=== PATIENT | female | born 1980 | race Caucasian/White ===

== ENCOUNTER 2022-05-26 17:05 | Inpatient (IN) | payer MEDICAID ==
[~2022-05-26] VITALS: Ht 175.3 cm; Wt 68.0 kg
[2022-05-26] MEDS ORDERED: CEFTRIAXONE 1 G in IV DEXTROSE 5% 50 ML IV ONE (19:00)
[2022-05-26] MEDS ORDERED: THIAMINE HCL 200 MG/2 ML VIAL IV ONE (19:00)
[2022-05-26] MEDS ORDERED: FOLIC ACID 5 MG/ML VIAL IV ONE ×2 (19:00→20:36)
[2022-05-26] MEDS ORDERED: OCTREOTIDE ACETATE 50 MCG/1 ML ML IV ONE (19:00)
[2022-05-26] MEDS ORDERED: IV NORMAL SALINE 1000 ML BAG IV ONE (19:00)
[2022-05-26] MEDS ORDERED: PANTOPRAZOLE SODIUM IV 80 MG in IV DEXTROSE 5% 100 ML IV ONE ×2 (19:00→21:00)
[2022-05-26] MEDS ORDERED: PANTOPRAZOLE SODIUM 40 MG VIAL IV ONE ×2 (19:00→20:45)
[2022-05-26] MEDS ORDERED: MORPHINE SULFATE 4 MG/1 ML DISP.SYRIN IV ONE ×2 (19:00→22:30)
[2022-05-26] MEDS ORDERED: OCTREOTIDE ACETATE INJ 500 MCG in IV DEXTROSE 5% 100 ML IV ONE (19:00)
[2022-05-26] MEDS ORDERED: ONDANSETRON 4 MG/2 ML VIAL IV ONE ×2 (19:00→22:30)
[2022-05-26 19:38] LABS: ALANINE AMINOTRANSFERASE 26 U/L (14-59); ALKALINE PHOSPHATASE 219 U/L (50-136); ASPARTATE AMINOTRANSFERASE 140 U/L (15-37); BILIRUBIN,DIRECT 2.4 mg/dL (0.0-0.2); BILIRUBIN,TOTAL 2.9 mg/dL (0.2-1.0); CARBON DIOXIDE 25 mmol/L (21-32); CHLORIDE 104 mmol/L (98-107); CREATININE 0.6 mg/dL (0.6-1.3); GLUCOSE 91 mg/dL (74-106); LIPASE 165 U/L (73-393); POTASSIUM 3.3 mmol/L (3.5-5.1); TOTAL PROTEIN, SERUM 6.2 g/dL (6.4-8.2); UREA NITROGEN, BLOOD 4 mg/dL (7-18)
--- NOTE | 2022-05-26 20:17 | NUR ---
pt was moved from room 5b to room 4b. pt a/o
--- NOTE | 2022-05-26 20:29 | NUR ---
pt is a very diffiuclt blood draw and iv start. lab is unable to do type and cross. Informed Dr. Cabrera and called rooming house inspector for a midline. pt has multiple meds to be given iv.
[2022-05-26] MEDS: POTASSIUM CHLORIDE 50 ML IV SCH ×2 (20:30→21:30)
[2022-05-26] MEDS: MAGNESIUM SULFATE/D5W 100 ML IV SCH ×2 (20:30→21:30)
[2022-05-26] MEDS ORDERED: MORPHINE SULFATE 4 MG/1 ML DISP.SYRIN ONE ×2 (20:36→22:31)
[2022-05-26 20:48] LABS: *URINE HCG, QUAL NEGATIVE (NEGATIVE)
[2022-05-26 20:49] LABS: *BILIRUBIN,URIN NEGATIVE (NEGATIVE); *BLOOD, URINE NEGATIVE (NEGATIVE); *CLARITY,URINE CLEAR (CLEAR); *COLOR,URINE YELLOW (YELLOW); *KETONES,URINE NEGATIVE (NEGATIVE); *UROBILINOGEN,URINE 0.2 E.U./dl (NORMAL); LEUKOCYTE ESTERASE ,URINE NEGATIVE (NEGATIVE); NITRITE, URINE NEGATIVE (NEGATIVE); PH,URINE 6.5 (5.0-8.0); UGLUCOSE NEGATIVE (NEGATIVE)
[2022-05-26] MEDS ORDERED: ONDANSETRON 4 MG/2 ML VIAL ONE ×2 (20:50→22:31)
[2022-05-26] MEDS ORDERED: PANTOPRAZOLE SODIUM 40 MG VIAL ONE (20:50)
[2022-05-26] MEDS ORDERED: THIAMINE HCL 200 MG/2 ML VIAL ONE (20:51)
[2022-05-26] MEDS ORDERED: PANTOPRAZOLE SODIUM IV 80 MG in IV DEXTROSE 5% 500 ML IV ONE (21:00)
--- NOTE | 2022-05-26 21:32 | NUR ---
I was informed by the ice house supervisor that the nurse will not come in to a picc line on the pt. I informed this to the ER doctor Deborah.
--- NOTE | 2022-05-26 21:57 | NUR ---
Dr. Cabrera is placing iv 20 g via ultrasound guidance.
--- NOTE | 2022-05-26 22:42 | NUR ---
2 iv [address] Cabrera to ac Right and Left.
--- NOTE | 2022-05-26 22:42 | NUR ---
Ravi Finn is speaking with Dr. Cabrera for admission.
[2022-05-26 22:57] LABS: HEMATOCRIT 37.6 % (31.2-41.9); MEAN CORPUSCULAR HEMOGLOBIN 33.5 uug (24.7-32.8); MEAN CORPUSCULAR VOLUME 101.6 fL (75.5-95.3); PLATELET COUNT (AUTO) 272 K/uL (179-408)
[2022-05-26] MEDS ORDERED: CEFTRIAXONE /D5W 50ML IVPB **ER PYXIS IV ONE (23:16)
[2022-05-26] MEDS ORDERED: POTASSIUM CHLORIDE 100 ML ONE (23:16)
[2022-05-26] MEDS ORDERED: MAGNESIUM SULFATE/D5W 200 ML ONE (23:16)
[2022-05-26] MEDS ORDERED: REMEDY ESSENTIAL ZINC PASTE 113 GM TP PRN (23:30)
[2022-05-26] MEDS ORDERED: OCTREOTIDE ACETATE DRIP 500 MCG in IV NORMAL SALINE 99 ML IV PRN (23:30)
[2022-05-26] MEDS ORDERED: ONDANSETRON 4 MG/2 ML VIAL IV PRN (23:30)
[2022-05-26] MEDS ORDERED: ACETAMINOPHEN 325 MG TABLET PO PRN (23:30)
[2022-05-26] MEDS ORDERED: CHLORDIAZEPOXIDE HCL 25 MG CAPSULE PO ONE (23:30)
[2022-05-26] MEDS ORDERED: MAGNESIUM HYDROXIDE 30 ML LIQUID UDC PO PRN (23:30)
--- NOTE | 2022-05-27 | NUR ---
report given to Juancho RN pt will go to room 306.
[2022-05-27] MEDS ORDERED: CHLORDIAZEPOXIDE HCL 25 MG CAPSULE PO ONE (00:30)
[2022-05-27] MEDS ORDERED: CHLORDIAZEPOXIDE HCL 25 MG CAPSULE ONE (00:56)
--- NOTE | 2022-05-27 00:59 | NUR ---
pt is consented for a central line, pt agrees for femerol line by Dr. Cabrera.
--- NOTE | 2022-05-27 02:15 | NUR ---
pt was transported to room 306 via [facility] with all belongings. ASHLEY Dawkins in room to receive the pt.
[2022-05-27 03:22] VITALS: BP 108/72
[2022-05-27] MEDS: LORAZEPAM 2 MG/1 ML VIAL IV PRN ×2 (03:23→20:08)
[2022-05-27 04:41] VITALS: BP 106/67
[2022-05-27 07:42] LABS: HEMATOCRIT 32.9 % (31.2-41.9); MEAN CORPUSCULAR HEMOGLOBIN 34.2 uug (24.7-32.8); MEAN CORPUSCULAR VOLUME 101.2 fL (75.5-95.3); PLATELET COUNT (AUTO) 204 K/uL (179-408)
[2022-05-27 07:57] LABS: BILIRUBIN,DIRECT 1.9 mg/dL (0.0-0.2); BILIRUBIN,TOTAL 2.2 mg/dL (0.2-1.0); CREATININE 0.6 mg/dL (0.6-1.3); PHOSPHOROUS 3.3 mg/dL (2.5-4.9); POTASSIUM 3.1 mmol/L (3.5-5.1); TOTAL PROTEIN, SERUM 4.6 g/dL (6.4-8.2)
[2022-05-27 08:00] LABS: THYROID STIMULATING HORMONE 0.532 mIU/mL (0.358-3.740)
[2022-05-27] MEDS: PANTOPRAZOLE SODIUM 40 MG VIAL IV SCH ×2 (08:37→20:08)
[2022-05-27] MEDS: FOLIC ACID 1 MG TABLET PO SCH ×2 (08:53→09:28)
[2022-05-27] MEDS: THIAMINE HCL 100 MG TABLET PO SCH ×2 (08:53→09:28)
[2022-05-27] MEDS: CHLORDIAZEPOXIDE HCL 25 MG CAPSULE PO SCH ×4 (08:53→18:09)
--- NOTE | 2022-05-27 08:53 | NUR ---
Patient is sleeping. No signs of pain or distress were noted on the patient. Pt wasn't administered PO meds because patient is currently NPO
--- NOTE | 2022-05-27 09:26 | NUR ---
Per Ravi Greer it's OK to give PO meds now. But still leave patient NPO till further notice for possible procedure
[2022-05-27] MEDS: REMEDY ESSENTIAL ZINC PASTE 113 GM TP SCH ×2 (09:29→20:09)
[2022-05-27] MEDS ORDERED: HYDROCODONE/APAP 5-325MG TABLET PO PRN (10:00)
[2022-05-27] MEDS ORDERED: MAG HYDROX/AL HYDROX/SIMETH 30 ML LIQUID UDC PO PRN (10:00)
[2022-05-27] MEDS: POTASSIUM CHLORIDE 50 ML IV SCH ×4 (10:30→15:30)
[2022-05-27] MEDS ORDERED: OCTREOTIDE ACETATE DRIP 500 MCG in IV NORMAL SALINE 99 ML IV SCH ×2 (11:12→11:30)
[2022-05-27] MEDS: [UNRECOGNIZED DRUG - OTHER] IV SCH ×4 (11:49→21:41)
[2022-05-27 12:00] VITALS: BP 105/77
[2022-05-27] MEDS: MORPHINE SULFATE 2 MG/1 ML DISP.SYRIN IV PRN ×2 (14:32→18:48)
[2022-05-27 16:00] VITALS: BP 95/61
[2022-05-27] MEDS: CEFTRIAXONE 1 G in IV DEXTROSE 5% 50 ML IV SCH (20:08)
[2022-05-27 20:34] VITALS: BP 113/79
[2022-05-28] MEDS: MORPHINE SULFATE 2 MG/1 ML DISP.SYRIN IV PRN ×4 (00:16→19:52)
[2022-05-28] MEDS: LORAZEPAM 2 MG/1 ML VIAL IV PRN ×3 (04:50→21:16)
[2022-05-28 04:55] VITALS: BP 109/77
[2022-05-28 07:49] LABS: CREATININE 0.6 mg/dL (0.6-1.3); POTASSIUM 4.7 mmol/L (3.5-5.1)
[2022-05-28] MEDS: [UNRECOGNIZED DRUG - OTHER] IV SCH ×2 (09:06)
[2022-05-28] MEDS: PANTOPRAZOLE SODIUM 40 MG VIAL IV SCH ×2 (09:06→20:00)
[2022-05-28] MEDS: THIAMINE HCL 100 MG TABLET PO SCH (09:06)
[2022-05-28] MEDS: FOLIC ACID 1 MG TABLET PO SCH (09:06)
[2022-05-28] MEDS: CHLORDIAZEPOXIDE HCL 25 MG CAPSULE PO SCH ×3 (09:06→17:14)
[2022-05-28] MEDS: REMEDY ESSENTIAL ZINC PASTE 113 GM TP SCH ×2 (09:07→21:00)
[2022-05-28 12:00] VITALS: BP 102/84
[2022-05-28 16:03] VITALS: BP 120/84
[2022-05-28] MEDS: CEFTRIAXONE 1 G in IV DEXTROSE 5% 50 ML IV SCH (20:00)
[2022-05-28 20:09] VITALS: BP 111/76
[2022-05-28] MEDS ORDERED: diphenhydrAMINE 25 MG CAP PO PRN (20:45)
[2022-05-29] MEDS: MORPHINE SULFATE 2 MG/1 ML DISP.SYRIN IV PRN ×5 (00:37→22:04)
[2022-05-29] MEDS: LORAZEPAM 2 MG/1 ML VIAL IV PRN ×2 (03:19→13:55)
[2022-05-29 04:32] VITALS: BP 106/72
[2022-05-29 06:35] LABS: HEMATOCRIT 30.6 % (31.2-41.9); MEAN CORPUSCULAR HEMOGLOBIN 34.1 uug (24.7-32.8); MEAN CORPUSCULAR VOLUME 100.9 fL (75.5-95.3); PLATELET COUNT (AUTO) 171 K/uL (179-408)
[2022-05-29 07:02] LABS: BILIRUBIN,TOTAL 2.3 mg/dL (0.2-1.0); CREATININE 0.7 mg/dL (0.6-1.3); MAGNESIUM 1.5 mg/dL (1.8-2.4); PHOSPHOROUS 2.7 mg/dL (2.5-4.9); POTASSIUM 4.4 mmol/L (3.5-5.1); TOTAL PROTEIN, SERUM 4.6 g/dL (6.4-8.2)
--- NOTE | 2022-05-29 08:00 | NUR ---
PT WILL HAVE EDG PROCEDURE AT 1300. NOTIFIED PT. PLACED PT ON NPO EXCEPT MED PER MD.
--- NOTE | 2022-05-29 08:15 | NUR ---
PT ON BED AWAKE BUT LETHARGIC. PT COMPLAIN OF ABDOMINAL PAIN WILL GIVE PRN MORPHINE PER MD. NO SOB NOTED.
[2022-05-29] MEDS: CHLORDIAZEPOXIDE HCL 25 MG CAPSULE PO SCH ×3 (09:02→17:00)
[2022-05-29] MEDS: PANTOPRAZOLE SODIUM 40 MG VIAL IV SCH ×2 (09:02→22:03)
[2022-05-29] MEDS: REMEDY ESSENTIAL ZINC PASTE 113 GM TP SCH ×2 (09:02→21:00)
[2022-05-29] MEDS: THIAMINE HCL 100 MG TABLET PO SCH (09:02)
[2022-05-29] MEDS: FOLIC ACID 1 MG TABLET PO SCH (09:02)
[2022-05-29] MEDS: MAGNESIUM SULFATE/D5W 100 ML IV SCH ×2 (09:44→11:04)
--- NOTE | 2022-05-29 09:57 | NUR ---
SW attempted to do an assessment with the patient and the patient asked this SW to come back at a different time. SW will follow up with the patient today.
[2022-05-29 12:01] VITALS: BP 109/70
--- NOTE | 2022-05-29 13:10 | NUR ---
EGD WAS MOVED TO 1900 PER SURGERY. NOTIFIED PT.
--- NOTE | 2022-05-29 13:22 | NUR ---
Social Work consult was requested for a patient on [facility] for substance abuse resources. Patient is a 42-year-old female admitted to the hospital for a GI bleed. Patient presents with anxious mood and congruent affect. Patient appears lethargic with low energy. Patient is alert and oriented X4. Patient states her primary floral designer salesperson is her daughter, Bibiana Mckinney ([phone]) and she lives in [place], [place]. Patient states she currently lives in a condo with a roommate at [address] [place] [address]. Patient states she is currently unemployed, she is driving, and does not have any medical equipment at home. Patient states she has a history of alcohol abuse. Patient states the last time she drank alcohol was right before she was admitted to the hospital. There is no toxicology report. [facility] provided the patient resources for substance abuse from [place] [id number] ([phone]), [facility] [address] [facility] [address] ([phone]), and [address] [address] ([phone]). Patient was appreciative of the resources and appears motivated for change, stating that she is open to receiving treatment. SW placed the resources in the patients chart.Patient denies a history of a psychiatric diagnosis. Patient states her plan for discharge is for her daughter, Bibiana ([phone]) to pick her up and take her home to [address] [place] [address].
[2022-05-29 16:28] VITALS: BP 122/81
--- NOTE | 2022-05-29 18:20 | NUR ---
PT WAS PICKED UP BY SURGERY TEAM. ALL JEWELRY WAS LEFT IN THE ROOM. PT ALERT AND COOPERATIVE.
[2022-05-29] MEDS ORDERED: MIDAZOLAM HCL 2 MG/2 ML VIAL ONE (18:36)
[2022-05-29] MEDS ORDERED: FENTANYL CITRATE 100 MCG/2 ML AMPUL ONE (18:36)
[2022-05-29] MEDS ORDERED: SUCCINYLCHOLINE CHLORIDE 200 MG/10 ML VIAL ONE (18:37)
[2022-05-29] MEDS ORDERED: PROPOFOL 200 MG/20 ML BOTTLE IV ONE (19:55)
[2022-05-29] MEDS ORDERED: ONDANSETRON 4 MG/2 ML VIAL IV ONE (19:55)
[2022-05-29] MEDS ORDERED: METOCLOPRAMIDE HCL 10 MG/2 ML VIAL IV ONE (19:55)
[2022-05-29] MEDS ORDERED: LIDOCAINE-MPF 2% 5 ML VIAL IJ ONE (19:55)
[2022-05-29] MEDS ORDERED: SEVOFLURANE 250 ML BOTTLE IH ONE (19:55)
[2022-05-29 21:47] VITALS: BP 108/73
[2022-05-29] MEDS: CEFTRIAXONE 1 G in IV DEXTROSE 5% 50 ML IV SCH (22:03)
[2022-05-30] MEDS: MORPHINE SULFATE 2 MG/1 ML DISP.SYRIN IV PRN ×2 (04:04→08:34)
[2022-05-30 04:12] VITALS: BP 115/70
[2022-05-30] MEDS: LORAZEPAM 2 MG/1 ML VIAL IV PRN ×2 (04:15→17:40)
--- NOTE | 2022-05-30 05:42 | NUR ---
SHIFT NOTE: PT CAME BACK FROM EGD PT IS JIM TURCIOS WROTE ORDERS TO CONTINUE TO ON SAME MEDICATION AND CAN HAVE REG DIET PT WAS GIVEN MORPHINE 2 MG AND ATIVAN 1MG LAST GIVEN AT 0404 NO SIGNS OF DISTRESS NOTED WILL ENDORSE TO AM NURSE PATIENT WAS GIVEN SANDWICH 2 CONTAINERS OF APPLE JUICE. PT MONITORED FOR FALL AND SAFETY MAINTAINED. WILL CONTINUE TO MONITOR FOR SAFETY.
[2022-05-30 06:34] LABS: CREATININE 0.7 mg/dL (0.6-1.3); MAGNESIUM 1.7 mg/dL (1.8-2.4); POTASSIUM 4.2 mmol/L (3.5-5.1)
--- NOTE | 2022-05-30 08:00 | NUR ---
sleeping on rounds but easily arousable when name was called, no distress noted, central line on right femoral area-no swelling/redness noted on site, call light within reach
[2022-05-30] MEDS: FUROSEMIDE 40 MG TABLET PO SCH (08:33)
[2022-05-30] MEDS: FOLIC ACID 1 MG TABLET PO SCH (08:33)
[2022-05-30] MEDS: CHLORDIAZEPOXIDE HCL 25 MG CAPSULE PO SCH ×3 (08:33→17:39)
[2022-05-30] MEDS: THIAMINE HCL 100 MG TABLET PO SCH (08:33)
[2022-05-30] MEDS: PANTOPRAZOLE SODIUM 40 MG VIAL IV SCH ×2 (08:33→20:37)
[2022-05-30] MEDS: REMEDY ESSENTIAL ZINC PASTE 113 GM TP SCH (08:36)
[2022-05-30] MEDS ORDERED: SPIRONOLACTONE 50 MG TABLET PO SCH (09:00)
[2022-05-30] MEDS ORDERED: SPIRONOLACTONE 100 MG TABLET PO SCH (09:00)
[2022-05-30] MEDS ORDERED: MAGNESIUM OXIDE 400 MG TABLET PO ONE (10:00)
--- NOTE | 2022-05-30 11:11 | NUR ---
WOUND CARE CONSULT: PT PRESENTS WITH RASH TO LEFT BUTTOCK AND LEFT THIGH AND MOSTLY LEFT SIDE OF BACK, UNKNOWN ETIOLOGY. DEFER TO PMD FOR RASH/SKIN CONDITION. PT IS INDEPENDENT WITH BED MOBILITY AND IS CONTINENT.
[2022-05-30 11:49] VITALS: BP 103/67
--- NOTE | 2022-05-30 13:30 | NUR ---
Patient is alert and oriented X4 able to go to the restroom on her own. Call light easily accessible; continue monitoring -KG (NS)
[2022-05-30] MEDS: HYDROMORPHONE 1 MG/1 ML DISP.SYRIN IV PRN ×2 (14:27→20:37)
--- NOTE | 2022-05-30 14:30 | NUR ---
us guided paracentesis done in the room- obtained 700ml fluids- sent to lab- tolerated procedure well
[2022-05-30 16:33] VITALS: BP 107/71
--- NOTE | 2022-05-30 18:34 | NUR ---
no distress noted, up and about to BR, voiding qs, ativan given x 1 this shift and medicated x 2- no reactions noted, all needs attended and met, call light within each
[2022-05-30 20:00] VITALS: BP 115/83
[2022-05-30] MEDS: CEFTRIAXONE 1 G in IV DEXTROSE 5% 50 ML IV SCH (20:37)
--- NOTE | 2022-05-31 00:10 | NUR ---
PT WAS GIVEN MEDICATION ATIVAN 1MG IV AND MEDICATION WAS SCAN BUT DIDN'T SHOW UP ON COMPUTER MEDICATION WAS GIVEN. MY EYEWITNESS WAS BLAS FLOR RN.
[2022-05-31] MEDS: HYDROMORPHONE 1 MG/1 ML DISP.SYRIN IV PRN ×3 (03:46→16:51)
[2022-05-31 04:00] VITALS: BP 102/66
[2022-05-31 06:48] LABS: HEMATOCRIT 33.6 % (31.2-41.9); MEAN CORPUSCULAR HEMOGLOBIN 33.4 uug (24.7-32.8); MEAN CORPUSCULAR VOLUME 100.5 fL (75.5-95.3); PLATELET COUNT (AUTO) 137 K/uL (179-408)
[2022-05-31 07:00] LABS: BILIRUBIN,TOTAL 2.5 mg/dL (0.2-1.0); CREATININE 0.8 mg/dL (0.6-1.3); MAGNESIUM 1.7 mg/dL (1.8-2.4); PHOSPHOROUS 4.3 mg/dL (2.5-4.9); POTASSIUM 4.2 mmol/L (3.5-5.1); TOTAL PROTEIN, SERUM 4.8 g/dL (6.4-8.2)
[2022-05-31] MEDS ORDERED: PROTEIN SUPPLEMENT (PROSTAT) 30 ML LIQUID PO SCH (08:00)
--- NOTE | 2022-05-31 08:42 | NUR ---
SHIFT NOTES ; PT IS ALERT AND ORIENTED X4 PT WAS GIVEN DILAUDID 0.5MG TWICE DURING THE SHIFT AND ATIVAN ONE MG DURING SHIFT NO ADVERSE REACTION NOTED FROM MEDICATION. PT CENTRAL LINE DRESSING WAS CHANGED. WILL CONTINUE TO MONITOR FOR SAFETY. PT BED LINEN WAS CHANGED AND PT WAS GIVEN TOWELS AND NEW GOWN WILL CONTINUE TO MONITOR FOR SAFETY.
[2022-05-31] MEDS ORDERED: SPIRONOLACTONE 50 MG TABLET PO SCH (09:00)
[2022-05-31] MEDS: LORAZEPAM 2 MG/1 ML VIAL IV PRN ×2 (09:23→14:54)
[2022-05-31] MEDS: PANTOPRAZOLE SODIUM 40 MG VIAL IV SCH (09:50)
[2022-05-31] MEDS: THIAMINE HCL 100 MG TABLET PO SCH (09:51)
[2022-05-31] MEDS: FUROSEMIDE 40 MG TABLET PO SCH (09:51)
[2022-05-31] MEDS: CHLORDIAZEPOXIDE HCL 25 MG CAPSULE PO SCH ×3 (09:53→16:52)
[2022-05-31] MEDS: FOLIC ACID 1 MG TABLET PO SCH (09:57)
--- NOTE | 2022-05-31 10:15 | NUR ---
SW consult was requested for a patient on medsurg to review alcohol abuse resources and facilitate discharge plan. Patient is a 42-year-old female admitted to the hospital for gastrointestinal hemorrhage. Patient is alert and oriented X4. Patient present with lethargic mood and low energy. SW attempted to review the alcohol abuse resources that this SW had previously given to the patient on 05/29/22 and the patient asked this SW to come back at a different time because she did not sleep well last night. SW asked the patient if she was open to going to a treatment center and patient states that she would possibly go to one. Patient appears ambivalent about treatment and SW will follow up later today with the patient. Patients current plan for discharge is to go home to [address] [place] [id number].
[2022-05-31] MEDS ORDERED: MAGNESIUM OXIDE 400 MG TABLET PO ONE (10:30)
[2022-05-31] MEDS: MAGNESIUM SULFATE/D5W 100 ML IV SCH ×2 (10:45→12:05)
--- NOTE | 2022-05-31 11:47 | NUR ---
NESTOR followed up with the patient about alcohol abuse resources. NESTOR provided the patient again with information for [facility] [address] [facility] [address] ([phone]), [facility] [address] [facility] [address] ([phone]), and [facility] [address] [facility] [address] ([phone]). NE[facility]OR also provided the patient with resources for alcoholics [facility] ([phone]). Patient was appreciative of the resources and appears ambivalent about treatment. Patient states her discharge plan is to go home to [address] [place] [id number]. [facility] spoke with director of casework, Gaurav, who will follow up with discharge plan.
[2022-05-31 12:00] VITALS: BP 101/68
[2022-05-31] MEDS ORDERED: NYSTATIN CREAM 30 GM TUBE TOP SCH (14:00)
[2022-05-31] MEDS ORDERED: FAMO-132 PO (15:53)
[2022-05-31] MEDS ORDERED: SPIR50TA PO (15:53)
[2022-05-31] MEDS ORDERED: OXYC10TA49 PO (15:53)
[2022-05-31] MEDS ORDERED: FURO40TA5 PO (15:53)
[2022-05-31 16:12] VITALS: BP 112/75
[2022-05-31] MEDS ORDERED: PANTOPRAZOLE SODIUM 40 MG TABLET.DR PO SCH (17:00)
--- NOTE | 2022-05-31 18:32 | NUR ---
Pt is a/o x 4, plan is to discharge home today. Pt requested a ride through [employer] and states that garbage pick up worker will be in 20-25 minutes. All discharge education provided, physical and electronic medication information provided. All personal belongings at hand, IV and ID bands removed. Pt is not in any acute distress.
== END 2022-05-31 18:46 | disposition home or self-care (01) | DRG 253 ==
LOC: ER 17:05 → TELE3 22:30 → MEDSURG3 05-27 14:44
PROVIDERS: ATTEND Internal Medicine
PROC: 0DJ08ZZ Inspection of Upper Intestinal Tract, Via Natural or Artificial Opening Endoscopic (ICD-10-PCS; 2022-05-29)
PROC: 0W9G3ZZ Drainage of Peritoneal Cavity, Percutaneous Approach (ICD-10-PCS; principal; 2022-05-30)
DX: K92.2 Gastrointestinal hemorrhage, unspecified (principal); E43 Unspecified severe protein-calorie malnutrition; K70.31 Alcoholic cirrhosis of liver with ascites; E88.09 Other disorders of plasma-protein metabolism, not elsewhere classified; F10.20 Alcohol dependence, uncomplicated; E83.42 Hypomagnesemia; E80.6 Other disorders of bilirubin metabolism; D50.0 Iron deficiency anemia secondary to blood loss (chronic); E87.6 Hypokalemia; F17.210 Nicotine dependence, cigarettes, uncomplicated; Z90.3 Acquired absence of stomach [part of]; Z76.5 Malingerer [conscious simulation]; K29.70 Gastritis, unspecified, without bleeding; Z87.11 Personal history of peptic ulcer disease; F32.A Depression, unspecified; K76.0 Fatty (change of) liver, not elsewhere classified; Z68.22 Body mass index [BMI] 22.0-22.9, adult; R74.01 Elevation of levels of liver transaminase levels; Z20.822 Contact with and (suspected) exposure to COVID-19
CPT/HCPCS: 36415; 36556; 76700; 83690; 83735; 84100; 84443; 84484; 84703; 85025; 85730; 86850; 86900; 86901; 87086; 93005; A4663; C9113; G0378; J0330; J0696; J1170; J2060; J2250; J2270; J2354; J2405; J2765; J3010; J3411; J3475; J3480; J3490; J7040; J7060; Q0163